=== PATIENT | male | born 1990 | race Caucasian/White ===

== ENCOUNTER 2021-02-05 18:04 | Emergency (ER) | payer BC ==
[~2021-02-05] VITALS: Ht 175.3 cm; Wt 97.5 kg
--- NOTE | 2021-02-06 15:20 | EKG ---
[facility] [address] [facility] [place], [place] [address] Signed Normal sinus rhythm with sinus arrhythmia Normal ECG No previous ECGs available Confirmed by MAX MARTINEZ MD ([id number]) on 02/06/2021 3:20:11 PM Electronically Signed By: MAX MARTINEZ MD 02/06/21 1520 PATIENT NAME: VISH MENDOZA Electrocardiogram DATE OF : 89 PHYSICIAN: MAX MARTINEZ MD REPORT #: [id number] REPORT IS CONFIDENTIAL AND NOT TO BE RELEASED WITHOUT AUTHORIZATION
== END 2021-02-05 20:55 | disposition home or self-care (01) ==
LOC: ED 18:04
DX: R00.2 Palpitations (principal)
CPT/HCPCS: 71045; 80053; 84484; 85025; 93005; 93010; 99285-25

== ENCOUNTER 2021-02-07 13:23 | Emergency (ER) | payer BC ==
[~2021-02-07] VITALS: Ht 175.3 cm; Wt 97.5 kg
--- OUTSIDE RECORDS SUMMARY | 2021-02-07 13:30 | XMS ---
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 Roberto has no Care Guidelines for this patient. Ghanshyam VISIT COUNT (12 MO.) 2 [facility] NOTE: Visits indicate total known visits. ED[facility] (12 MO.) [facility] COMPLAINT: - IRREGULAR HEART BEAT, DIZZY 02/05/2021 18:04 [facility] [place] TYPE: Emergency COMPLAINT: - IRREGULAR HEART BEAT INPATIENT VISIT TRACKING (12 MO.) No inpatient visits to display in this time frame [email or web address]
--- NOTE | 2021-02-07 16:57 | EKG ---
[facility] [address] [place] [address] Signed Sinus rhythm with sinus arrhythmia with occasional premature ventricular complexes Otherwise normal ECG When compared with ECG of 05-FEB-2021 18:16, premature ventricular complexes are now present Confirmed by ABRIL MILLER MD ([id number]) on 02/07/2021 4:56:48 PM Electronically Signed By: ABRIL MILLER MD 02/07/21 1657 PATIENT NAME: VISH MENDOZA Electrocardiogram DATE OF : 89 PHYSICIAN: ABRIL MILLER MD REPORT #: [id number] REPORT IS CONFIDENTIAL AND NOT TO BE RELEASED WITHOUT AUTHORIZATION
== END 2021-02-07 15:53 | disposition home or self-care (01) ==
LOC: ED 13:23
DX: I49.3 Ventricular premature depolarization (principal)
CPT/HCPCS: 80053; 83735; 84443; 84484; 85025; 93005; 93010; 99285-25; J7030

== ENCOUNTER 2022-05-01 08:17 | Inpatient (IN) | payer BC ==
[~2022-05-01] VITALS: Ht 175.3 cm; Wt 99.0 kg
[~2022-05-01 08:17] MED LIST: HYDROCODON-ACE1 EA10 PO
--- OUTSIDE RECORDS SUMMARY | 2022-05-01 08:18 | XMS ---
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 Ghanshyam VISIT COUNT ([address] [facility] TOTAL 2 NOTE: Visits indicate total known visits. ED/[facility] VISIT TRACKING (12 MO.) 05/01/2022 08:17 [facility] [place] TYPE: Emergency COMPLAINT: - CHEST PAIN 04/27/2022 22:24 [facility] [place] TYPE: Emergency COMPLAINT: - POST OP PROBLEM DIAGNOSES: - Other specified postprocedural states - Acute pharyngitis, unspecified - Erythematous condition, unspecified INPATIENT VISIT TRACKING (12 MO.) No inpatient visits to display in this time frame [email or web address]
--- NOTE | 2022-05-01 16:00 | NUR ---
PATIENT ARRIVE FROM ER VIA STRETHCER AND MOVED HIMSELF OVER TO BED#123. PATIENT IS ON CRUTCHES. PATIENT'S LUNGS ARE CLEAR, BUT HAVING 5/10 RT CHEST PAIN ACHE/SHARPNESS/TIGHTNESS. 3/10 LLE PAIN WITH BBOT/BRACE IN PLACE FROM RUPTURED ACHILLES TENDON. BOWEL TONES ACTIVE. PATIENT'S IS AT BEDSIDE. THIS RN PERFORMING PATIENT'S INTAKE. CALL LIGHT IN REACH.
--- NOTE | 2022-05-01 16:32 | NUR ---
THIS RN GAVE PATIENT HIS ORAL BLOOD THINER AND TYLENOL FOR RT CHEST AND LLE PAIN 5/10. PATIENT ASSESSMENT AND INTAKE COMPLETE. PATIENT'S IS GOING TO GO GET PATIENT SOME FOOD. PATIENT ORIENTED TO CALL LIGHT AND TV REMOTE. PATIENT HAS NO OTHER CARE NEEDS AT THIS TIME. CALL LIGHT IS IN REACH.
--- NOTE | 2022-05-01 17:53 | NUR ---
PATIENT RESTING QUIETLY IN BED EATING THE OOD HIS HAS BROUGHT. PATIENT HAS NO CURRENT CARE NEEDS AT THIS TIME. CALL LIGHT IS IN REACH.
--- NOTE | 2022-05-01 19:30 | NUR ---
REPORT RECEIVED FROM KYRA MCHUGH, ASSUMED CARE OF PATIENT. PATIENT CURRENLTY RESTING, AWAKE IN BED DENIES NEEDS AT THIS TIME.
--- NOTE | 2022-05-01 20:00 | NUR ---
PT VITALS SIGNS OBTAINED, ASSESSMENT COMPLETED. PATIENT APPEARS CALM AND RELAXED, STATES HE IS "GOOD" WHEN ASKED ABOUT PAIN, DENIES NEED FOR PAIN MEDS, DENIES BEING SHORT OF BREATH. OBSERVED PATIENT TO GET UP TO USE RESTROOM TO VOID, USES CRUTCHES, STANDBY ASSIST. CMS INTACT TO LEFT LOWER EXTREMITY, HAS BOOT IN PLACE POST OP SUPPOSED TO REMAIN IN PLACE. PATIENT IS MOVING ALL HIS TOES, CAP REFILL < 2 SECONDS TO LEFT FOOT NAIL BEDS, SKIN WARM TO TOUCH, DENIES NUMBNESS OR TINGLING. CALL LIGHT IN REACH.
--- NOTE | 2022-05-01 22:06 | EKG ---
[facility] [address] [facility] [place] [address] Signed Normal sinus rhythm Abnormal QRS-T angle, consider primary T wave abnormality Abnormal ECG When compared with ECG of 07-FEB-2021 13:34, premature ventricular complexes are no longer present Confirmed by ABRIL MILLER MD ([id number]) on 05/01/2022 10:06:37 PM Electronically Signed By: ABRIL MILLER MD 05/01/22 2206 PATIENT NAME: VISH MENDOZA CARLOS ALBERTO Electrocardiogram DATE OF : 89 PHYSICIAN: ABRIL MILLER MD REPORT #: [id number] REPORT IS CONFIDENTIAL AND NOT TO BE RELEASED WITHOUT AUTHORIZATION
--- NOTE | 2022-05-01 22:33 | NUR ---
CHECKED ON PATIENT HIS CALL LIGHT WAS GOING OFF, HE SAYS IT WAS AN ACCIDENT DIDN'T MEAN TO" PATIENT ASKED IF HE NEEDED ANYTHING HE DENIES THIS.
--- NOTE | 2022-05-01 23:44 | NUR ---
CHECKED IN ON PATIENT. ROOM IS DARKENED, HIS EYES ARE CLOSED. VISUALZIED RISE AND FALL OF CHEST. REMAINS ON TELE NUMBER 3. CALL LIGHT IS IN REACH.
--- NOTE | 2022-05-02 00:09 | NUR ---
WENT IN TO CHECK ON PATIENT NOTED HIS TELE WAS SHOWING A HR IN THE "120'S" PATIENT IS IN HIS BED AND i ASKED PATIENT HOW HE WAS DOING AND TOLD HIM I NOTED HIS HEARTRATE INCREASED, HE STATES "YEAH WAS JUST UP USING THE BATHROOM I LEFT THE URINAL IN THERE" THIS RN REINFORCED TO PATIENT ABOUT THE USE OF CALL LIGHT FOR ALL NEEDS EVEN IF HE IS ABLE TO DO THINGS INDEPENDENTLY, WE NEED TO ENSURE SAFETY. PT IS USING HIS CRUTCHES HIS LEFT LEG IS NON WEIGHTBEARING DUE TO PREVIOUS SURGERY. PATIENT VERBALIZED THAT HE WILL USE CALL LIGHT STATES "I'M SORRY I FORGOT" REPORTING 5/10 PAIN TO HIS CHEST AREA THAT IS THE SAME ARE THAT HAS BEEN HURTING AND BACK PAIN AND BEING UNBALE TO SLEEP. PT IS AGREEABLE TO TAKING PAIN MED, GIVEN 2 NORCO 5/325.
--- NOTE | 2022-05-02 01:33 | NUR ---
IN ROOM TO OBTAIN VITALS PATIENT HAS EYES CLOSED BUT QUICKLY OPENS EYSE TO SOUND, INSISTS THAT "I'M JUST BARELY DOZING OFF" PT REPORTS HIS DICOMFORT HAS IMPROVED AFTER HAVING THE NORCO. DENIES FEELING SHORT OF BREATH. ENCOURAGED TO CONTINUE DRINKING WATER. DENIES NEEDING TO GET UP TO VOID AT THIS TIME. CALL LIGHT IN REACH.
--- NOTE | 2022-05-02 02:57 | NUR ---
CHECKED IN ON PATIENT. HE IS LAYING TOWARD HIS LEFT SIDE SLIGHTLY, VISUALIZED RISE AND FALL OF CHEST RR 18 NONLABORED. CALL LIGHT IN REACH, SPOT CHECK SPO2 IS 95%.
--- NOTE | 2022-05-02 04:44 | NUR ---
PT ASLEEP, EYES CLOSED, RESTING ON BED, VISULIZED RISE AND FALL OF CHEST RR 16, SPOT CHECK SAO2 IS 95%. CALL LIGHT IN HIS REACH.
--- NOTE | 2022-05-02 05:48 | NUR ---
IN ROOM TO DO PATIENT VITALS, PATIENT WAS ASLEEP BUT AWAKENS TO VOICE. STATES HIS PAIN WAS GOOD BUT "BEEN TRYING TO TAKE DEEPER BREATHS LIKE YOU SAID THINK IT MADE MY CHEST MORE SORE" PT DENIES FEELING SHORT OF BREATH, LUNGS ARE CLEAR TO AUSCULTATIONIN ALL LADD. RR WNL 97% ROOM AIR. ASSESSMENT COMPLETED. PATIENT STATES HE WILL TAKE MORE PAIN MEDICATION "IF THAT'S OK" TOLD PATIENT I WILL BE BACK IN WITH MORE PAIN MED SOON I CAN. DENIES THE NEED TO VOID, HAS BEEN DRINKING WATER FROM HIS OWN WATER BOTTLE.
--- NOTE | 2022-05-02 06:19 | NUR ---
IN ROOM TO CHECK ON PATIENT AND HE IS REPORTING HIS PAIN HAS INCREASED TO HIS RIGHT CHEST UPON WAKING UP, HE RAISED THE HOB TO HELP, STATES IT IS "ABOUT THE SAME WHEN I CAME IN YESTERDAY" STATES IT IS MORE "ACHEY" PATIENT DENIES BEING MORE SHORT OF BREATH, BUT STATES "JUST DON'T FEEL WELL, I DON'T KNOW" PT GIVEN ADDITIONAL NORCO FOR HIS PAIN STATES IT IS 7/10. PT ASLO REQUESTED TO VOID, HE AMBULATED WITH CRUTCHES AND VOIDED 350 ML URINE. THIS RN ALSO CHECKED SATS 97% RR 16-18, SHALLOW ENCOURAGED TO TAKE DEEP BREATHS, STATES IT "HURTS MORE TO TAKE DEEP BREATHS. LUNGS AUSCULTATED CLEAR IN ALL LADD. THIS RN CALLED DR MILLER AND INFORMED HER OF PATIENT'S INCREASED PAIN. NO NEW ORDERS RECIVED AT THIS TIME.
--- NOTE | 2022-05-02 06:58 | NUR ---
PT INFORMED THAT I SPOKE WITH DR MILLER ABOUT HIS PAIN, PATIENT THINKS THE PAIN MAY BE "BETTER" HE IS NOT SURE. DENIES OTHER NEEDS AT THIS TIME. HAS QUESTIONS ABOUT MEDICATIONS HE WILL TAKE UPON DC, INSTRUCTED PATIENT IT IS PATIENT DEPENDENT AND HOW HIS CONDITION IS AT DC, BUT THE DOCTOR WILL REVIEW THIS WITH HIM
--- NOTE | 2022-05-02 07:30 | NUR ---
THIS RN RECEIVED SHIFT REPORT FROM LOLITA BULLOCK. PATIENT RESTING IN BED QUIETLY AWAKE. PATIENT SAYS HIS CHEST AND LEG PAIN ARE STARTING TO GET BETTER AFTER THE NORCO THAT WAS GIVEN A SHORT TIME AGO. PATIENT DENIES ANY CARE NEEDS AT THIS TIME. CALL LIGHT IS IN REACH.
--- NOTE | 2022-05-02 08:15 | NUR ---
THIS RN IN TO SEE PATIENT. PATIENT'S CHEST PAIN REMIAN 04/17 AT THIS TIME. THE LAST NORCO PATIENT HAD REALLY DID NOT HELP WITH THE PAIN. PATIENT ALSO ADMITS TO BEING ANXIOUS ABOUT HIS SITUATION. AM ASSESSMENT COMPLETE. LUNGS CLEAR AND RESPIRATIONS ARE SHALLOW AND THIS RN ENCOURAGED DEEP BREATHING EXERCISES. PATIENT IS TRY TO REMEMBER TO DO THIS. THIS RN TALKED WITH ANGELA ABOUT PATIENT'S CONTINUED PAIN AND ANXIETY AND SHE IS GOING TO PUT IN SOME ORDERS. INFORMED PATIENT I WOULD BE BACK AROUND ONCE THE ORDERS ARE RECEIVED. PATIENT VERBALIZED UNDERSTANDING. PATIENT'S ICE WATER WAS REFILLED BY THIS RN. CALL LIGHT IS IN REACH AND MARIA T HAS NO OTHER CARE NEEDS AT THIS TIME.
[2022-05-02] MEDS ORDERED: ALOPHEN PILLS5 MG PO (08:44)
[2022-05-02] MEDS ORDERED: ELIQUIS5 MG PO (09:18)
[2022-05-02] MEDS ORDERED: HYDROCODON-ACE1 EA10 PO (09:21)
--- NOTE | 2022-05-02 10:09 | NUR ---
PATIENT CALLED AND TELLS THIS RN HE FEELS LIKE HE CAN'T CATCH HIS BREATH. RESPIRATIONS ARE 28/MIN AND O2 STS ARE 95% ON RA. PATIENT IS VERY ANXIUOUS. ORDERING VISTARIL PO FOR ANXIETY. AWAITING ORDER TO CLEAR IN PYXIS.
--- NOTE | 2022-05-02 10:34 | NUR ---
INFORMED PATIENT IS VERYA ANXIOUS AND HIS CP IS 9/10. ODERED A STAT PORTABLE CXR AND SOME IV MORPHINE. X-RAY IN THE ROOM AT THIS TIME AND THIS RN AWAITING MS TO CLEAR IN THE PYXIS.
--- NOTE | 2022-05-02 10:55 | NUR ---
THIS RN IN AND GAVE PATIENT 2MG SIVP MORPHINE. PATIENT SAYS HE IS BREATHING EASIER AND NOT FEELING SO ANXIOUS AND HIS PAIN WAS ALMOST INSTANTLY FROM 06/18 TO 04/17. PATIENT HAS CONTINUOUS PULSE OX ON AND SATS 93-95%. PATIENT AND MALE FAMILY MEMBER AT BEDSIDE. THIS RN SUGGESTED IF PATIENT WAS ABLE TO TRY AND GET A LITTLE SLEEP AND PATIENT IS GOING TO TRY. CALL LIGHT IS IN REACH AND PATIENT AND FAMILY DENIED ANY OTHER CARE NEEDS AT THIS TIME.
--- NOTE | 2022-05-02 11:08 | NUR ---
THIS RN BACK TO CHECK ON PATIENT WHO IS RESTING QUIETLY WITH HIS EYES CLOSED IN LOW FOWLERS POSITION. RESPIRATION SHALLOW AND EVEN. O2 SAT=94% ON RA. PATIENT'S AT BEDSIDE IN THE RECLINER. CALL LIGHT IN REACH. PATIENT HAS NO CARE NEEDS AT THIS TIME.
--- NOTE | 2022-05-02 12:08 | NUR ---
THIS RN CHECKED IN ON PATIENT WHO STILL APPEARS TO BE SLEEPING. PATIENT'S IN CHAIR AT BEDSIDE. O2 SATS=93% RA WITH TELE HR=88. RESPIRRATIONS SHALLOW AND REGULAR. PATIENT HAS NO NURSE CARE NEEDS A THIS TIME. CALL LIGHT IS IN REACH.
--- NOTE | 2022-05-02 12:45 | NUR ---
THIS RN IN TO SEE PATIENT. PATIENT SAYS HE FEELS LESS ANXIOUS, BUT HAS CP IS ABOUT 8/10, BUT HE DOES NOT WANT ANY MORE PAIN MEDICATION AT THIS TIME. PATIENT SAID HE IS HAVING A NEW SYMPTOM OVR THE LAST SEVERAL HOURS THAT HE HAS REALY BAD PAIN WHEN HE TRIES TO SWALLOW AND SWALLOWING INCREASES THE PATIENT'S CHEST PAIN. PATIENT SAYS HE WILL CALL IF HE THINKS HE NEEDS MORE PAIN MEDICATION. PATIENT'S REMAINS AT BEDSIDE. INFORMED OF PATIENT'S PAIN WITH SWALLOWING AND HAD NO NEW ORDERS FOR THIS RN AT THIS TIME. CALL LIGHT IS WITHIN PATIENT'S REACH.
--- NOTE | 2022-05-02 13:19 | NUR ---
TRIED TO SEE PATIENT FOR INTAKE. PATIENT MOANING WITH PAIN WITH BY HIS SIDE. STAFF INTEGRATION ARCHITECT IN ROOM STATES RN IS COMING IN TO MEDICATE. DEFER SEEING PATIENT AT THIS TIME.
--- NOTE | 2022-05-02 13:28 | NUR ---
2MG IV MS GIVEN TO PATIENT BY LOLITA KLINE. PATIENT WAS HAVING 10/10 CHEST PAIN.
--- NOTE | 2022-05-02 13:31 | NUR ---
TO PT ROOM RESPONDING TO CALL LIGHT. PT REPORTING 10/[address] MILLER AT BEDSIDE. PT REFUSED NORCO AND REQUESTING MORPHINE. ORDERED BY . VS WNL. TELE READJUSTED. CALL LIGHT WITHIN REACH.
--- NOTE | 2022-05-02 14:19 | NUR ---
SPOKE WITH PATIENT AND IN ROOM. PATIENT IS FEELING BETTER AFTER CATCHING UP WITH PAIN. DISCUSSED ASKING FOR PAIN MEDS SOON AVAILABLE AND IMPORTANCE OF STAYING ON TOP OF PAIN. PATIENT HAD SURGERY AND IS ALREADY SET UP AT HOME PLANNING TO USE DOWNSTAIRS BEDROOM BY THE BATHROOM, AND HAS A SHOWER CHAIR. HAS CRUTCHES IN THE ROOM. HIS MAIN CONCERN HAVING THE PAINFUL CHEST AREA IS HAVING TO USE THE CRUTCHES. 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 SHE WILL DRIVE HIM HOME AT DISCHARGE. DISCUSSED COSTS OF MEDICATIONS AND WHAT TO DO IF THEY HAVE DIFFICULTY. THEY STATE THEY DO HAVE A HIGH DEDUCTIBLE BUT SHOULD BE OK. THEY FEEL THEY ARE FINE WITH FOOD, NO RISK OF LOSING UTILITIES. THEY HAVE NO CONCERNS IN REGARDS TO HOME DISCHARGE AT THIS TIME OTHER THAN THEY WERE CONCERNED HE WAS BEING DISCHARGED. AGAIN EXPLAINED THESE ARE ONLY SCREENING QUESTIONS FOR NEWLY ADMITTED PATIENTS AND DOES NOT HAVE A DISCHARGE ORDER. DISCUSSED TO BE SURE AND ASK ANY QUESTIONS, ESPECIALLY IF SOMETHING IS NOT UNDERSTOOD COMPLETELY. CASE MANAGEMENT WILL FOLLOW NEEDED.
--- NOTE | 2022-05-02 14:44 | NUR ---
ULTRASOUND NOW IN THE ROOM TO PERFORM A STUDY ON THE LEFT LEG TO R/O DVT.
--- NOTE | 2022-05-02 14:51 | NUR ---
THIS RN IN TO SEE PATIENT US STILL UNDERWAY. PATIENT SAYS HIS PAIN IS 8-9/10 IN HIS CHEST. AWARE ON CONTINUED PAIN. ORDERING AN ADITIONAL MORPHINE DOSE AT THIS TIME. THIS RN WILL ADMINISTER THIS SOON AVAILABLE IN THE PYXIS. PATIENT'S CALL LIGHT IS IN REACH.
--- NOTE | 2022-05-02 15:19 | NUR ---
THIS RN IN TO GIVE 4MG SIVP MORPHINE FOR CHEST PAIN 8-10. WITH IN A COUPLE MINUTES PATIENT'S CHEST PAIN DOWN TO 6/10 IF TAKING DEEP BREATHS AND LESS THAN THAT IF BREATHING REGULARLY.O2 SATS 93% ON ROOM AIR. PATIENT STATES,"THIS IS THE BEST I'VE FELT AND THE BEST I HAVE BEEN ABLE TO BREATH SINCE EARLY THIS MORNING." ENCOURAGE PATIENT TO TRY AND SLEEP AWHILE IF HE IS ABLE. AFTERNOON ASSESSMENT COMPLETE. PATIENT'S REMAINS AT BEDSIDE. LEFT LEG US DID SHOW A DVT. PATIENT INFORMED HE IS NOW ON BEDREST AND HE WILL HAVE TO USE THE URINAL IN BED IF NEEDING TO VOID. PATIENT AND BOTH VERBALIZED UNDERSTANDING. CALL LIGHT IS IN REACH.
--- NOTE | 2022-05-02 16:16 | NUR ---
PATIENT IS RESTING QUIETLY, EYES CLOSED, RESPIRATIONS SHALLOW AND REGULAR AT 20/MIN, HR=82 ON TELE, O2 SATS=92% ON ROOM AIR, AND CALL LIGHT IS IN REACH. PATIENT'S IS GOING HOME FOR THE NIGHT TO TAKE CARE OF THE BABY. PATIENT HAS NO CURRENT CARE NEEDS AT THIS TIME.
--- NOTE | 2022-05-02 16:53 | NUR ---
PATIENT HAVING A CARDIAC ECHO DONE AT THIS TIME. PATIENT HAS NO CARE NEEDS FROM THIS RN AT THIS TIME. CALL LIGHT IS IN REACH.
--- NOTE | 2022-05-02 17:24 | NUR ---
PATIENT'S ULTRASOUNDS ARE FINISHED. PATIENT'S PAIN IS BACK TO 8/10 IN HIS RIGHT CHEST AND PATIENT FEELING A LITTLE SHORT OF BREATH. HAS INCREASED MS TO 2-4MG MORPHINE AND 4MG SIVP GIVEN AT THIS TIME. WITH IN A COUPLE MINUTES OF ADMINISTRATION PATIENT'S PAIN IS DOWN TO 6/10 AND PATIENT FEWELS HE CAN BREATH OK. PATIENT IS GOING TO TRY TO EAT A LITTLE AND THEN TAKE A NAP. PATIENT DENIES ANY OTHER CARE NEEDS AT THIS TIME. CALL LIGHT IS IN REACH.
--- NOTE | 2022-05-02 19:27 | NUR ---
THIS RN IN TO SEE PATIENT. NS STARTED AT 75MLS/HR AND PATIENT GIVEN 4MG SIVP MORPHINE FOR 8/10 RT CHEST PAIN. REPORT GIVEN TO LOLITA CRONIN. PATIENT HAS NO OTHER CARE NEEDS AT THIS TIME. CALL LIGHT IS IN REACH.
--- NOTE | 2022-05-02 19:31 | NUR ---
REPORT RECEIVED FROM DAY SHIFT RN. PT LYING IN BED ALERT AND ORIENTED. DAY SHIFT RN TO MEDICATE FOR PAIN. SpO2 92% ON RA. RESPIRATIONS EVEN. TELE #[address] HR 90'S. PT DENIES NEEDS AT THIS TIME. AT BEDSIDE. WHITE BOARD UPDATED. CALL LIGHT IN REACH.
--- NOTE | 2022-05-02 20:10 | NUR ---
PT PLACED ON TELE CPOX FOR CLOSE MONITORING. REPORTS PAIN IS TOLERABLE AT THIS TIME. JELLO AND ICE WATER PROVIDED. NO FURTHER NEEDS.
--- NOTE | 2022-05-02 21:45 | NUR ---
EVENING ASSESSMENT COMPLETE. SCHEDULED MEDS ADMIN PER EMAR. PT REPORTS SOB AND INREASED PAIN. PRN FOR PAIN ADMIN FOR 7/10 RIGHT CHEST PAIN. TEMP NOTED 100.1. PT ENCOURAGED TO DEEP BREATHE. PRN TYLENOL ADMIN. 2PA TO REMOVE SHORTS AND UNDERWEAR AND PUT CLEAN SHORTS ON. PT PAINFUL AND SOB DESPITE PRN ADMIN. REPORTS IT TAKES "30 MINUTES TO CATCH MY BREATH." PT REASSURES. LUNGS CLEAR. RESPIRATIONS SHALLOW. LEFT FOOT IN WALKING BOOT. CMS INTACT. BLE ELEVATED IN BED. TELE #[address] IVF INFUSING WNL. FRESH WATER PROVIDED. NO FURTHER NEEDS.
--- NOTE | 2022-05-02 22:22 | NUR ---
CALL LIGHT ANSWERED. PT ABLE TO VOID 300 ML CONCENTRATED URINE. REQUESTS THIS RN TO STAY IN ROOM FOR A FEW MINUTES DUE TO "NOT BEING ABLE TO CATCH MY BREATH." SpO2 90-93% ON RA. HR 90-100'S. RESPIRATIONS SHALLOW. 1L/NC PLACED FOR COMFORT. PT REPORTS IMPROVEMENT WITH OXYGEN. PRN FOR ANXIETY ADMIN PER EMAR. PT REPORTS CONTINUED PAIN RIGHT CHEST PAIN /10. AGREED TO RELAX FOR A FEW MINUTES BEFORE REQUESTING ADDITIONAL PRN FROM . HOB ELEVATED. CALL LIGHT IN REACH.
--- NOTE | 2022-05-03 | NUR ---
PT REPORTS RIGHT SIDE CHEST PAIN AND RUQ PAIN 03/18. PRN FOR PAIN ADMIN PER EMAR. TEMP 99.1. PT REPORTS FEELING BETTER SINCE LAST PRN ADMIN AND ABLE TO BREATHE DEEPER AND EASIER. RA. SpO2 93%. HR 80-90'S.
--- NOTE | 2022-05-03 01:54 | NUR ---
PT REPORTS RIGHT SIDE CHEST PAIN 04/17 AND SOB. PRN FOR PAIN ADMIN PER EMAR. NO FURTHER NEEDS. CALL LIGHT IN REACH.
--- NOTE | 2022-05-03 03:42 | NUR ---
PT REPORTS RIGHT CHEST PAIN 04/17. PRN FOR PAIN ADMIN PER EMAR. PT REPORTS FEELING THOUGH HIS RESPIRATIONS "ARE MORE SHALLOW." PT ON RA. SpO2 91-93%. RESPIRATIONS EVEN. HR 80'S. DENIES FURTHER NEEDS. CALL LIGHT IN REACH.
--- NOTE | 2022-05-03 06:12 | NUR ---
VS AND I&O COMPLETE. PT REPORTS RIGHT CHEST PAIN AND RUQ PAIN /. PRN FOR PAIN ADMIN PER EMAR. PT DENIES NAUSEA. REPORTS FEELING SLIGHTLY SOB. PT RA AT THIS TIME. SpO2 LOW 90'S. OXYGEN 1L/NC PRN FOR COMFORT. IVF INFUSING WNL. PT ABLE TO VOID 400 ML CONCENTRATED URINE. ENCOURAGED PO INTAKE. JELLO AND APPLE JUICE PROVIDED. NO FURTHER NEEDS. CALL LIGHT IN REACH.
--- NOTE | 2022-05-03 07:30 | NUR ---
SHIFT REPORT RECEIVED FROM LOLITA CRONIN. PATIENT'S RT CHEST PAIN IS 6/10 AT THIS TIME AND IT IS TOLERABLE PER PATIENT AT THIS TIME. PATIENT DENIES ANY CURRENT CARE NEEDS. RESPIRATIONS ARE SHALLOW AND EVEN WITH O2 SAT OF 93% ON RA. HR=78 ON TELE. CALL LIGHT IS IN REACH.
--- NOTE | 2022-05-03 08:12 | NUR ---
THIS RN IN TO SEE PATIENT. PATIENT HAVING RIGHT CHEST PAIN 7/ AND GIVEN 4MG SIVP MS. PATIENT AM ASSESSMENT COMPLETE. AM MEDS GIVEN. BREAKFAST HAS ARRIVED. PATIENT DENIES ANY OTHER CARE NEEDS AT THIS TIME. CALL LIGHT IN REACH.
--- NOTE | 2022-05-03 09:16 | NUR ---
PATIENT PAIN IS BACK DOWN TO 6/10 AND HE FEELS LIKE HE IS DOING OK AT THIS TIME. JUST ARRIVED. THIS RN ASKING IF SHE WANTS TO CONTINUE NS IV OR NOT. SHE WILL REVIEW I+O. PATIENT'S CALL LIGHT IS IN REACH AND HE WILL CALL IF HE NEEDS ANYTHING.
--- NOTE | 2022-05-03 09:30 | NUR ---
Per Am report with Dr. Lam, awaiting workup. Pt may transfer to [place] depending of results.
--- NOTE | 2022-05-03 10:24 | NUR ---
PATIENT'S PAIN BACK TO 7/10 AND PATIENT GETTING RESTLEWSS AND REQUESTING MEDICATION. 4MG SIVP MS GIVEN AND NEW NS IV UP AND RUNNING. PATIENT IS HERE NOW TO VISIT. PATIENT ATE A LITTLE BREAKFAST, BUT SAYS IT STILL IS REALLY UNCOMFORTABLE TO SWOLLOW. CALL LIGHT IS IN REACH AND PATIENT DENIES ANY OTHER NEEDS AT THIS TIME.
--- NOTE | 2022-05-03 11:43 | NUR ---
PATIENT'S PAIN IS 6/10 AT THIS TIME AND PATIENT VISTING WITH FAMILY. PATIENT HAS NO NUSING CARE NEEDS AT THIS TIME AND CALL LIGHT IS IN REACH.
--- NOTE | 2022-05-03 12:31 | NUR ---
THIS RN BACK IN TO SEE PATIENT. PATIENT'S PAIN STARTING TO GO UP AGAIN AND IS 7/10 AT THIS TIME 4MG SIVP MS GIVEN. PATIENT SAYS HE THINKS HE IS BREATHING A LITTLE EASIER THAN HE WAS THIS MORNING. PATIENT'S REMAINS AT BEDSIDE. PATIENT AND ASKING LOTS OF QUESTIONS. THIS RN DISCUSSED THE IMPORTANCE OF THE BEDREST FOR THE CONCERNS ABOUT THE DVT IN THE PATIENT'S LEFT LEG. PATIENT AND INFORMED THIS RN THAT THEY WERE NOT AWARE OF THE BLOOD CLOT IN THE LEFT LEG. DISCUSSED THE RESULT OF THE LEG US DONE YESTERDAY AND PATIENT AND UNDERSTAND THE REASON FOR THE BEDREST ORDER NOW. CALL LIGHT IS IN REACH AND PATIENT HAS NO MORE CARE NEEDS AT THIS TIME. PATIENT WAS NOT HUNGRY AND HAD ME TAKE HIS LUNCH TRY AWAY.
--- NOTE | 2022-05-03 13:41 | NUR ---
RN IN ROOM TO EMPTY URINAL - MEERA IN COLOR. PT DENIES PAIN WITH URINATION. VS AND I/O COMPLETE. PT DENIES WORSENING SOB OR FEELING FEVERISH, TEMP 100.2. ENCOURAGED PT TO TAKE DEEP BREATHS. PT USING O2 VIA NC PRN FOR COMFORT. PRIMARY RN UPDATED.
--- NOTE | 2022-05-03 14:20 | NUR ---
PT SITTING UP IN BED VISITING WITH MARTINE AT . PT FEELS PAIN IS BETTER CONTROLLED, FEELS CARED FOR. 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 PT FEELS A LITTLE STRESSED, HE HAS 2 FARMS THAT ARE BOTH STARTING HARVEST. PT FEELS HE HAS THE HELP HE NEEDS WITH FAMILY AND EMPLOYEES. PT REQUESTED PRAYER, HE SAID HE IS VERY PLEASED WITH LOLITA RAE AND HIS CARE.
--- NOTE | 2022-05-03 14:30 | NUR ---
THIS RN IN TO CHECK ON PATIENT AGAIN AND HE SAYS HE FEELS LIKE HE IS BREATHING EASIER THIS AFTERNOON, BUT PAIN IS INCREASING AND IS BACK TO 7/10. 4MG SIVP MS GIVEN AND PO PROTONIX STARTED. PATIENT'S URINE REMAINS CONCENTRATED AND HAS INCREASED THE PATIENT'S IV FLUIDS TO 125MLS/HR. PATIENT AND ARE AWITING ECHO RESULTS FROM YESTERDAY, AND THIS RN HAS REQUESTED THAT [facility] CHARGE NURSE SEE IF SHE CAN GET THE RESULTS. KEYLA IS AWAITING A CALL BACK FROM RADIOLOGY. PATIENT'S IS GOING HOME FOR AWHILE AND PATIENT IS TRYING TO REST NOW. CALL LIGHT IS IN REACH AND PATIENT HAS NO CURRENT CARE NEEDS.
--- NOTE | 2022-05-03 15:07 | NUR ---
PATIENT RESTING QUIETLY IN SEMI-FOWLERS POSITION. PATIENT DOWN TO 5/10. PATIENT HAS NO PATIENT CARE NEEDS AT THIS TIME. CALL LIGHT IS IN REACH.
--- NOTE | 2022-05-03 16:25 | NUR ---
THIS RN IN TO SEE PATIENT. PATIENT SAYS HIS ESOPHGEAL BURNING AND STOMACH PAIN HAVE BEEN RELEIVED SINCE HE TOOK THE PROTONIX AND HE HAS BEEN DRINKING WATER WITHOUT ISSUES AND IS HUNGRY. PATIENT REQUESTED VANILLA PUDDING WHICH WAS GIVEN TO THE PATIENT AND HE IS EATING. PATIENT'S RT CHEST AND RIGHT SCAPULA PAIN ARE INCREASING AND PAIN IS 6-7/10. PO TYLENOL GIVEN AND 4MG SIVP MORPHINE. URINAL EMPITED. PATIENT'S GOING HOME FOR THE EVENING. PATIENT IS GOING TO TRY AND CATCH ANOTHER NAP. CALL LIGHT IS IN REACH AND PATIENT DENIES ANY OTHER CARE NEEDS AT THIS TIME.
--- NOTE | 2022-05-03 17:20 | NUR ---
PATIENT'S PAIN IS 6/10 AT THIS TIME AND PATIENT IS MORE ANIMATED AND HAS MORE ENERGY THAN HE HAS HAD IN DAYS PER PATIENT'S REPORT. PATIENT HAS NO CARE NEEDS AT THIS TIME. DINNER HAS ARRIVED FROM THE KITCHEN. PATIENT HAS NO CARE NEEDS FROM THIS RN AT THIS TIME.
--- NOTE | 2022-05-03 18:32 | NUR ---
PATIENT HAS EATEN 100% OF HIS DINNER AND DRINKING FLUIDS WITHOUT DIFFICULTY. CHEST AND RT SCAPULA PAIN BACK UP TO 7-8/10 AND 4MG SIVP MS GIVEN AND NEW BAG OF NS HUNG AND RUNNING. URINAL EMPTIED. STEPPED IN AND LET PATIENT KNOW HIS ECHO WAS COMPLETELY NORMAL AND PATIENT IS VERY RELEIVED AND IS CALLING HIS TO TELL HER. CALL LIGHT IS IN REACH AND WATER BOTTLE REFILLED.
--- NOTE | 2022-05-03 18:43 | NUR ---
PATIENT IN BED RESTING AT THIS TIME. VITALS AND I&O'S CHARTED. FRESH WATER GIVEN. PATIENT IN MUCH BETTER SPIRITS THAN EARLIER. CALL LIGHT IN REACH. NO FURTHER NEEDS AT THIS TIME.
--- NOTE | 2022-05-03 19:27 | NUR ---
REPORT RECEIVED FROM DAY SHIFT RN. PT LYING IN BED ALERT AND ORIENTED. DENIES NEEDS. WHITE BOARD UPDATED. CALL LIGHT IN REACH.
--- NOTE | 2022-05-03 20:38 | NUR ---
EVENING ASSESSMENT COMPLETE. SCHEDULED MEDS ADMIN PER EMAR. PT REPORTS RIGHT CHEST PAIN 04/17. PRN FOR PAIN AND ANXIETY ADMIN PER EMAR. PT REPORTS SOB, NO WORSE THAN BEFORE. FEELS HE IS ABLE TO BREATHE DEEPER THIS EVEING. OCCASIONAL DRY COUGH NOTED. LUNGS CLEARA THROUGHOUT. SpO2 MID 90'S ON RA. RESPIRATIONS SHALLOW. IVF INFUSING WNL. ASSISTED PT TO REPOSITION IN BED. HOB ELEVATED. LLE IN WALKING BOOT. CMS INTACT. PT DENIES QUESTIONS OR CONCERNS. CALL LIGHT IN REACH.
--- NOTE | 2022-05-04 00:48 | NUR ---
PT AWAKE IN BED. REPORTS RIGHT SIDE CHEST PAIN 04/17. PRN FOR PAIN ADMIN PER EMAR. REPORTS SOB "NO WORSE THAN BEFORE." CONTINUED DRY COUGH. SpO2 LOW 90'S ON RA. HR 80'S. NO FURTHER NEEDS. CALL LIGHT IN REACH.
--- NOTE | 2022-05-04 02:37 | NUR ---
NEW BAG IVF INFUSING. PT REPORTS RIGHT SIDE CHEST PAIN 04/17. PRN FOR PAIN ADMIN PER EMAR. URINAL EMPTIED. NO FURTHER NEEDS.
--- NOTE | 2022-05-04 04:27 | NUR ---
PT SpO2 86-90%. 1L/NC PLACED. SpO2 UP TO 94%. HR 70'S. PT DROWSY, AWAKENS EASILY TO VOICE. HOB ELEVATED. DENIES NEEDS.
--- NOTE | 2022-05-04 05:58 | NUR ---
VS AND I&O COMPLETE. PT ON RA. SpO2 LOW 90'S. REPORTS FEELING SLIGHTLY SOB. CONTINUES DRY COUGH. REPORTS 7/10 RIGHT SIDE CHEST PAIN. PRN FOR PAIN ADMIN PER EMAR. PT AGREEABLE TO TRIAL TITRATION OF PAIN MEDS. TEMP NOTED 99.5. PRN TYLENOL ADMIN.
--- NOTE | 2022-05-04 06:25 | NUR ---
CALL LIGHT ANSWERED. PT COUGHED UP SMALL AMOUNT THICK DARK RED SPUTUM. DR. MILLER NOTIFIED. NEW TELEPHONE ORDERS RECEIVED FOR CHEST XRAY. VERIFIED WITH READ BACK METHOD. PT ON RA. SPo2 93%. HR 80'S. RESPIRATIONS EVEN. PT REPORTS IMPROVED PAIN AFTER SPUTUM PRODUCTION. REPORTS FEELING SLIGHT SOB, BUT NO WORSE THAN BEFORE.
--- NOTE | 2022-05-04 09:43 | NUR ---
Patient reports increased discomfort in right chest. SP02 92% on room air, respirations non labored. Patient provided with cool cloth for his face. One percocet 7.5/325mg po admin at this time for pain. Left leg in boot at this time, toes are pink/warm. Patient denies needs, personal supplies and call light within reach.
--- NOTE | 2022-05-04 10:10 | NUR ---
VITALS AND I/Os DUE. PT VISITING WITH DIRECTOR OF AVIATION. VITAL SIGNS STABLE. IV FLUIDS DC'D. IV FLUSHED AND SALINE LOCKED AT THIS TIME, ALCOHOL CAP APPLIED. PT DENIES ADDITIONAL REQUESTS OR COMPLAINTS. CALL LIGHT WITHIN REACH. BED RAILS UP.
--- NOTE | 2022-05-04 10:45 | NUR ---
PATIENT CALLED TO USE RESTROOM. IN TO ASSIST PATIENT. PATIENT SAT UP ON EDGE OF BED, THEN STOOD, THEN WENT IN TO BATHROOM SBA. PATIENT TOLERATED IT WELL. LINENS CHANGED BY THIS BUILDING CONSTRUCTION ENGINEER. PATIENT DONE WITH BATHROOM AND STOOD UP FROM TOILET AND FELT A LITTLE LIGHT HEADED, HE WAITED A MINUTE THEN CAME OUT TO BED. WHEN PATIENT GOT TO BED, HE COMPLAINED OF RIGHT SHOULDER/SIDE PAIN AND SAID "IT IS JUST LIKE THE PAIN FROM THE OTHER DAY!" TOLD PATIENT TO REST IN BED AND SEE IF PAIN WENT AWAY AND TOLD RN RIGHT AWAY. CALL LIGHT IS IN REACH AND VISITOR IS IN ROOM.
--- NOTE | 2022-05-04 11:25 | NUR ---
ADMIN TYLENOL 650MG PO AND VISTARIL 25MG PO FOR ANXIETY AND RIGHT CHEST DISCOMFORT. AT BEDSIDE AT THIS TIME. PATIENT DENIES SHORTNESS OF BREATH AT REST. NO NEEDS AT THIS TIME, PERSONAL SUPPLIES AND CALL LIGHT WITHIN REACH.
--- NOTE | 2022-05-04 13:37 | NUR ---
PT RESTING QUIETLY IN RM. PT HAVING TROUBLE WITH PAIN CONTROL TODAY. TRYING TO TRANSITION FROM IV PAIN TO ORAL PAIN MEDS TO PREPARED FOR DC. ANOTHER CLOT FOUND IN PT'S LLE. CAUSING SOME DISCOURAGEMENT. PT REQUESTED PRAYER AND ASKED IF I WOULD UPDATE HIS COUNTER ATTENDANT, WHICH I DID. WILL FOLLOW
--- NOTE | 2022-05-04 13:50 | NUR ---
Patient requesting pain medication for 7/10 right chest pain. Admin one tab percocet 7/325mg po at this time. Patient reports slight shortness of breath at rest, sp02 92% at this time. at bedside visiting with patient. No acute needs, personal supplies and call light within reach.
--- NOTE | 2022-05-04 14:00 | NUR ---
Spoke with Roberto. He denies needs. He does state he wants to know what else he can use instead of crutches as they make his PE hurt in his chest on the R side. I asked if he would like a walker, he is concerned this will also cause pain. Let him know I will ask PT if they have any ideas. Left a note for PT in their office.
--- NOTE | 2022-05-04 16:30 | NUR ---
Patient requesting to take a nap at this time. Vital signs taken, stable at this time. Patient reports slight shortness of breath at rest. Patient is on room air, sp02 95% on room air. Fresh water provided. Personal supplies and call light within reach.
--- NOTE | 2022-05-04 19:32 | NUR ---
PT RESTING IN BED .HOB ELEVATED.REPORT RECIEVED CRISTINA MCHUGH. UPON RETURN TO ROOM PT STATED HE HAD PAIN R/T COUGHING AND REQUESTED PAIN MEDICATION. AT THIS TIME HE REQUESTED ANXITY MEDICATION, DISCRIBED ANXITY WAS R/T CURRENT ILLNESS AND SLOW PROGRESS, "I WOULD LIKE TO BE HOME AND WORKING". MEDICATIONS REVIEWED
--- NOTE | 2022-05-05 00:28 | NUR ---
PT IS RESTING IN BED WITH HOB ELEVATED, EYES CLOSED.NAD
--- NOTE | 2022-05-05 01:05 | NUR ---
CALL LIGHT ANSWERED, pt REPORTING INCREASED PAIN, 6-04/17. PRN PAIN MEDICATION AND SNACK PROVIDED. OLEKSANDR NELSON NOW IN ROOM WITH pt. CALL LIGHT IN REACH.
--- NOTE | 2022-05-05 02:41 | NUR ---
PT C/O GENERALIZED ITCHING, NO RASH NOTED. PT HAS RECIEVED OPIOD RECENTLY. PT STATES HE HAS HAD "ITCHING LIKE THIS WHEN I WAS TAKING IV PAIN MEDICATION" MEDICATED FOR ITCHING AND WILL CONTINUE TO MONITOR
--- NOTE | 2022-05-05 07:26 | NUR ---
Patient in bed resting, no distress. Patient is on room air, respirations even and non labored. Patient reports he is slightly sob, sp02 93% at this time. Patient reports he did not sleep well last night. This RN encouraged patient to go back to sleep for a little while until breakfast arrives, pt receptive to plan, light shut off at this time. Call light within reach, no needs at this time.
--- NOTE | 2022-05-05 11:00 | NUR ---
Patient doing well this morning, a&ox4. Patient reports he just working with physical therapy this morning and felt he did well ambulating in hallway with them. Patient reports he is less sob today, sp02 mid to high 90's, no respiratory distress noted. Patient requesting to shower with his 's assist, SWIMMING POOL SERVICE TECHNICIAN to set up. Pain reports tolerable at this time. Personal supplies and call light within reach.
[2022-05-05] MEDS ORDERED: OXYCODON-ACETA1 EAC2 PO (12:14)
--- NOTE | 2022-05-05 13:42 | NUR ---
PT ALERT, ORIENTED AND VISITING WITH HIS . PT ADMITTED HE DIDN'T SLEEP WELL, STILL HOPING TO DC TODAY. GAVE ENCOURAGEMENT AND WILL FOLLOW
--- NOTE | 2022-05-05 14:20 | NUR ---
Spoke with pt and his . Pt does not have pcp. NOtified by Dr. Lam he should not ride to [place] in a car on Monday to have stiches removed. Texted Jessica at Orthopedic office and asked if they would be able to see Roberto on Monday. She states she has already spoken with him and has scheduled appt. I will spoke with him and he would like a pcp here in town. [facility] and Dr. King has an opening May.17 at 4:30. Scheduled for a FU visit and they will establish care with this pt. Will fax chart and face sheet to his office. PT spoke with pt about his crutches and padded them, this helped with the pain. Pt will dc to home with .
== END 2022-05-05 13:10 | disposition home or self-care (01) | DRG 301 ==
LOC: ED 08:17 → MS 08:18
PROVIDERS: ADMIT Internal Medicine; ATTEND Internal Medicine
DX: T81.718A Complication of other artery following a procedure, not elsewhere classified, initial encounter (principal); I26.99 Other pulmonary embolism without acute cor pulmonale; Z20.822 Contact with and (suspected) exposure to COVID-19; Z98.890 Other specified postprocedural states; Y83.8 Other surgical procedures as the cause of abnormal reaction of the patient, or of later complication, without mention of misadventure at the time of the procedure
CPT/HCPCS: 36415; 71045; 71260; 80048; 80053; 84484; 85025; 85610; 85730; 87502; 93005; 93010; 93306; 93971; A9270; J1650; J1885; J2270; J7030; Q0177; Q9967; U0003

== ENCOUNTER 2022-08-29 17:12 | Emergency (ER) | payer BC ==
[~2022-08-29] VITALS: Ht 175.3 cm; Wt 100.0 kg
[~2022-08-29 17:12] MED LIST changes: +ALOPHEN PILLS5 MG PO; +ELIQUIS5 MG PO; +OXYCODON-ACETA1 EAC2 PO
--- OUTSIDE RECORDS SUMMARY | 2022-08-29 17:17 | XMS ---
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 Ghanshyam VISIT COUNT (12 MO.) [facility] TOTAL 3 NOTE: Visits indicate total known visits. ED/UCC VISIT TRACKING (12 MO.) 08/29/2022 17:15 [facility] TYPE: Emergency COMPLAINT: - R CHEST AND BACK PAIN 05/01/2022 08:17 [facility] TYPE: Emergency COMPLAINT: - CHEST PAIN 04/27/2022 22:24 [facility] TYPE: Emergency COMPLAINT: - POST OP PROBLEM DIAGNOSES: - Acute pharyngitis, unspecified - Erythematous condition, unspecified - Other specified postprocedural states INPATIENT VISIT TRACKING (12 MO.) 05/01/2022 14:[address] [facility] TYPE: Medical Surgical COMPLAINT: - ACUTE PULMONARY EMBOLISM DIAGNOSES: - Other surgical procedures as the cause of abnormal reaction of the patient, or of later complication, without mention of misadventure at the time of the procedure - Other pulmonary embolism without acute cor pulmonale - Other specified postprocedural states - Complication of other artery following a procedure, not elsewhere classified, initial encounter - Complication of other artery following a procedure, not elsewhere classified, initial encounter - Contact with and (suspected) exposure to COVID-19 - Other specified postprocedural states - Other surgical procedures as the cause of abnormal reaction of the patient, or of later complication, without mention of misadventure at the time of the procedure - Contact with and (suspected) exposure to COVID-19 [email or web address]
[2022-08-29] MEDS ORDERED: CYCLOBENZAPRINE10 MG PO (21:58)
--- NOTE | 2022-08-30 20:59 | EKG ---
[facility] [address] [place] [address] Signed Sinus bradycardia with sinus arrhythmia Otherwise normal ECG When compared with ECG of 01-MAY-2022 08:17, Vent. rate has decreased BY 38 BPM QT has shortened Confirmed by Haley Orellana MD () on 08/30/2022 8:58:56 PM Electronically Signed By: HALEY ORELLANA MD 08/30/222058 PATIENT NAME: VISH MENDOZA CARLOS ALBERTO Electrocardiogram DATE OF : 89 PHYSICIAN: HALEY ORELLANA MD REPORT #: [id number] REPORT IS CONFIDENTIAL AND NOT TO BE RELEASED WITHOUT AUTHORIZATION
== END 2022-08-29 22:20 | disposition home or self-care (01) ==
LOC: ED 17:12
DX: R07.89 Other chest pain (principal)
CPT/HCPCS: 36415; 71260; 80048; 84484; 85025; 85379; 93005; 93010; 99285-25; Q9967